=== PATIENT | male | born 1960 | race Caucasian/White ===

== ENCOUNTER 2017-03-09 18:57 | Outpatient (CLI) | payer MEDICAID | END 2017-03-09 18:58 | disposition critical access hospital (66) | DX: S01.01XA Laceration without foreign body of scalp, initial encounter (principal); V17.4XXA Pedal cycle driver injured in collision with fixed or stationary object in traffic accident, initial encounter; Y93.55 Activity, bike riding; Y92.414 Local residential or business street as the place of occurrence of the external cause | CPT/HCPCS: A0425; A0429 ==

== ENCOUNTER 2017-03-09 19:14 | Emergency (ER) | payer MEDICAID ==
[2017-03-09] MEDS ORDERED: IOPAMIDOL-300 100 ML VIAL IVP ONE (20:10)
== END 2017-03-09 21:50 | disposition home or self-care (01) ==
DX: S01.01XA Laceration without foreign body of scalp, initial encounter (principal); V17.4XXA Pedal cycle driver injured in collision with fixed or stationary object in traffic accident, initial encounter; Y93.55 Activity, bike riding; Y92.488 Other paved roadways as the place of occurrence of the external cause; K86.3 Pseudocyst of pancreas; F17.200 Nicotine dependence, unspecified, uncomplicated
CPT/HCPCS: 12002; 36415; 70450; 71260; 72125; 74177; 80053; 80320; 83690; 85025; 99283; 99284; Q9967

== ENCOUNTER 2017-03-26 13:01 | Emergency (ER) | payer MEDICAID | END 2017-03-26 13:45 | disposition home or self-care (01) | DX: S01.01XD Laceration without foreign body of scalp, subsequent encounter (principal); X58.XXXD Exposure to other specified factors, subsequent encounter; F17.200 Nicotine dependence, unspecified, uncomplicated ==

== ENCOUNTER 2017-06-19 11:39 | Emergency (ER) | payer MEDICAID ==
[2017-06-19 11:50] VITALS: BP 154/101
[2017-06-19] MEDS ORDERED: IBUPROFEN 600 MG TABLET PO STA (12:18)
[2017-06-19] MEDS ORDERED: CYCLOBENZAPRINE 10 MG TABLET PO STA (12:18)
--- NOTE | 2017-06-19 12:21 | ED Physician Documentation ---
PD HPI BACK PAIN - Stated complaint Stated Complaint: BACK PX - Chief complaint Chief Complaint: Back Pain - History obtained from History obtained from: Patient - History of Present Illness Timing - onset: How many days ago (5) Timing - duration: Days (5) Timing - details: Gradual onset Pain level max: 8 Pain level now: 4 Location: Lower, Left Quality: Pain, Spasm, Similar to prior episodes Associated symptoms: No: Fever, Weakness, Numbness, Incontinent of urine, Unable to urinate, Hematuria, Incontinent of stool Improves with: Rest Worsened by: Movement, Lifting, Twisting Contributing factors: Other (thinks he might have fallen, but unsure) Similar symptoms before: Diagnosis (back pain) Recently seen: Not recently seen - Additional information Additional information: states marijuana is not helping. hasn't tried anything else. Review of Systems Ten Systems: 10 systems reviewed and negative Constitutional: denies: Fever, Chills Nose: denies: Rhinorrhea / runny nose, Congestion Throat: denies: Sore throat Cardiac: denies: Chest pain / pressure Respiratory: denies: Cough GI: denies: Abdominal Pain, Nausea, Vomiting, Diarrhea : denies: Incontinent Skin: denies: Rash Musculoskeletal: denies: Neck pain Neurologic: denies: Focal weakness, Numbness, Altered mental status, Headache PD PAST MEDICAL HISTORY - Past Medical History Cardiovascular: None Respiratory: None Neuro: None Endocrine/Autoimmune: None GI: Pancreatitis : None HEENT: None Psych: None Musculoskeletal: None Derm: None - Past Surgical History Past Surgical History: Yes General: Appendectomy, Other Ortho: Other HEENT: Tonsil/Adenoidectomy - Present Medications Home Medications: Ambulatory Orders Medication Instructions Recorded Confirmed Cyclobenzaprine [Flexeril] 10 mg PO TID PRN #20 tablet 06/19/17 Ibuprofen [Motrin] 800 mg PO Q8H PRN #30 tablet 06/19/17 - Allergies Allergies/Adverse Reactions: Allergies Allergy/AdvReac Type Severity Reaction Status Date / Time No Known Drug Allergies Allergy Verified 03/26/17 13:09 - Social History Does the pt smoke?: Yes Smoking Status: Current every day smoker Does the pt drink ETOH?: Yes ETOH Use: Beer Does the pt have substance abuse?: Yes Substance Use and Type: Marijuana - Immunizations Immunizations are current?: No Immunizations: TDAP >10years/unknown - POLST Patient has POLST: No POLST Status: Full Code PD ED PE NORMAL - Vitals Vital signs reviewed: Yes - General General: Alert and oriented X 3, No acute distress - HEENT HEENT: Moist mucous membranes - Neck Neck: Supple, no meningeal sign - Cardiac Cardiac: RRR - Respiratory Respiratory: No respiratory distress, Clear bilaterally - Abdomen Abdomen: Soft, Non tender, Non distended, No organomegaly, Other (no masses) - Back Back: No spinal TTP, Other (TTP L SI joint with mild muscle spasm. no midline tenderness to palpation or percussion.) - Derm Derm: Warm and dry - Extremities Extremities: Other (normal bilateral lower extremity patellar and ankle jerk reflexes. Normal great toe extension bilaterally) - Neuro Neuro: Alert and oriented X 3, No motor deficit, No sensory deficit - Psych Psych: Normal mood, Normal affect Results - Vitals Vitals: Vital Signs - 24 hr 06/19/17 11:45 Temperature 35.3 C L Heart Rate 98 Respiratory 20 Rate Blood Pressure 154/101 H O2 Saturation 99 Oxygen O2 Source Room air PD MEDICAL DECISION MAKING - ED course Complexity details: re-evaluated patient, considered differential (no cauda equina, no spinal epidural abscess, no fracture, no aortic dissection or evidence of aneursym rupture), d/w patient ED course: Patient is a 56-year-old gentleman who presents to the emergency department with left low back pain and paraspinal spasm. No midline tenderness. Does not use IV drugs. No evidence of epidural abscess, cauda equina or fracture. Ambulating quite well. Pain improved with Motrin and Flexeril. Will prescribe medications for home and follow-up with his doctor. Patient counseled regarding signs and symptoms for which I believe and urgent re-evaluation would be necessary. Patient with good understanding of and agreement to plan and is comfortable going home at this time This document was made in part using voice recognition software. While efforts are made to proofread this document, sound alike and grammatical errors may occur. Departure - Departure Disposition: 01 Home, Self Care Clinical Impression: Low back strain Qualifiers: Encounter type: initial encounter Qualified Code(s): S39.012A - Strain of muscle, fascia and tendon of lower back, initial encounter Condition: Good Instructions: ED Sprain Strain Lumbar Follow-Up: your,doctor in 1 week if not better [Other] Prescriptions: Cyclobenzaprine [Flexeril] 10 mg PO TID PRN #20 tablet PRN Reason: Spasms Ibuprofen [Motrin] 800 mg PO Q8H PRN #30 tablet PRN Reason: PAIN &/OR FEVER Comments: Return if you worsen. This should improve over the next few days. Do not drive or operate heavy machinery while taking the Flexeril. Your blood pressure was elevated today on check in to the emergency department. This does not mean that you have hypertension, it is a common phenomenon to check into the emergency department and have elevated blood pressure. I recommend that you see your primary care physician within the week to have it rechecked when you're feeling better. Discharge Date/Time: 06/19/17 13:00
[2017-06-19] MEDS ORDERED: IBUPROFEN 600 MG TABLET PO ONE (12:24)
[2017-06-19] MEDS ORDERED: CYCLOBENZAPRINE 10 MG TABLET PO ONE (12:24)
== END 2017-06-19 13:00 | disposition home or self-care (01) ==
LOC: ED 11:39
DX: S39.012A Strain of muscle, fascia and tendon of lower back, initial encounter (principal); X58.XXXA Exposure to other specified factors, initial encounter; R03.0 Elevated blood-pressure reading, without diagnosis of hypertension; F17.200 Nicotine dependence, unspecified, uncomplicated
CPT/HCPCS: 99283; A9270

== ENCOUNTER 2017-10-19 12:00 | Emergency (ER) | payer MEDICAID ==
[2017-10-19 13:30] VITALS: BP 152/99
[2017-10-19] MEDS ORDERED: SULFAMETH/TRIMETH DS 800/160 MG TABLET PO STA (13:37)
[2017-10-19] MEDS ORDERED: HYDROmorphone 1 MG/ML SYRINGE IM STA (13:37)
[2017-10-19] MEDS ORDERED: cephALEXin 250 MG CAPSULE PO STA (13:40)
--- NOTE | 2017-10-19 13:40 | ED Physician Documentation ---
History of Present Illness - Stated complaint Stated Complaint: SORE ON BUTTOCKS - Chief complaint Chief Complaint: General - History obtained from History obtained from: Patient - History of Present Illness Timing: Other (This is a 57-year-old very pleasant homeless alcoholic who has been sleeping on his right hip. He has a sore there that is painful. No fevers.) Review of Systems Constitutional: denies: Fever, Chills GI: reports: Abdominal Pain (chronic). denies: Diarrhea, Hematemesis, Bloody / black stool : reports: Reviewed and negative PD PAST MEDICAL HISTORY - Past Medical History Cardiovascular: None Respiratory: None Neuro: None Endocrine/Autoimmune: None GI: Pancreatitis : None HEENT: None Psych: None Musculoskeletal: None Derm: None - Past Surgical History Past Surgical History: Yes General: Appendectomy, Other Ortho: Other HEENT: Tonsil/Adenoidectomy - Present Medications Home Medications: Ambulatory Orders Medication Instructions Recorded Confirmed Cyclobenzaprine [Flexeril] 10 mg PO TID PRN #20 tablet 06/19/17 Ibuprofen [Motrin] 800 mg PO Q8H PRN #30 tablet 06/19/17 Cephalexin [Keflex] 500 mg PO QID #40 capsule 10/19/17 HYDROcod/ACETAM 5/325 [[place] 5/325] 1 - 2 ea PO Q6H PRN #10 tablet 10/19/17 Sulfamethoxazole/Trimethoprim 1 each PO BID 10 Days tablet 10/19/17 [Sulfamethoxazole-Tmp Ds Tablet] - Allergies Allergies/Adverse Reactions: Allergies Allergy/AdvReac Type Severity Reaction Status Date / Time No Known Drug Allergies Allergy Verified 03/26/17 13:09 - Social History Does the pt smoke?: Yes Smoking Status: Current every day smoker Does the pt drink ETOH?: Yes Does the pt have substance abuse?: Yes - Immunizations Immunizations are current?: No Immunizations: TDAP >10years/unknown - POLST Patient has POLST: No POLST Status: Full Code PD ED PE NORMAL - Vitals Vital signs reviewed: Yes - General General: Alert and oriented X 3, No acute distress - Abdomen Abdomen: Soft, Non tender - Extremities Extremities: Other (There is a focal area of cellulitis over the trochanter of the right hip measuring about 3 cm in diameter with a slightly abraded surface. Bedside ultrasound does not demonstrate any fluid collection to drain at this juncture.) - Neuro Neuro: Alert and oriented X 3, Normal speech Results - Vitals Vitals: Vital Signs - 24 hr 10/19/17 10/19/17 12:14 13:28 Temperature 36.5 C Heart Rate 104 H 96 Respiratory 18 16 Rate Blood Pressure 148/105 H 152/99 H O2 Saturation 97 97 Oxygen O2 Source Room air PD MEDICAL DECISION MAKING - ED course ED course: 57-year-old gentleman with focal area of cellulitis over the hip, pain is not out of proportion to exam. No Evidence of abscess at this juncture, although advised that this may develop, he does not need incision and drainage now though. He is started on antibiotics and advised to return for wound check in 24-48 hours. I suspect the cause of the wound is that he lays on that side when he is drunk. He was advised to cut back on his drinking so that he would move around more in his sleep and not put undue pressure on the already sore spot. Departure - Departure Disposition: 01 Home, Self Care Clinical Impression: Cellulitis of hip, right Condition: Good Record reviewed to determine appropriate education?: Yes Instructions: Cellulitis Dc Prescriptions: Cephalexin [Keflex] 500 mg PO QID #40 capsule HYDROcod/ACETAM 5/325 [[place] 5/325] 1 - 2 ea PO Q6H PRN #10 tablet PRN Reason: Pain Sulfamethoxazole/Trimethoprim [Sulfamethoxazole-Tmp Ds Tablet] 1 each PO BID 10 Days tablet Comments: Return in 48 hours For wound check, sooner if worsening or for fevers. Your blood pressure was elevated today on check into the emergency department. This does not mean that you have hypertension, it is a common phenomenon to come to the emergency department and have elevated blood pressure. I recommend that you see your primary care physician within the week to have it rechecked when you are feeling better. Discharge Date/Time: 10/19/17 13:55
[2017-10-19] MEDS ORDERED: SULFAMETH/TRIMETH DS 800/160 MG TABLET PO ONE (13:46)
[2017-10-19] MEDS ORDERED: HYDROmorphone 1 MG/ML SYRINGE ONE (13:46)
[2017-10-19] MEDS ORDERED: cephALEXin 250 MG CAPSULE PO ONE (13:48)
== END 2017-10-19 13:55 | disposition home or self-care (01) ==
LOC: ED 12:00
DX: L03.115 Cellulitis of right lower limb (principal); R03.0 Elevated blood-pressure reading, without diagnosis of hypertension; Z59.0 Homelessness; F17.200 Nicotine dependence, unspecified, uncomplicated
CPT/HCPCS: 96372; 99283; A9270; J1170

== ENCOUNTER 2017-11-19 00:35 | Outpatient (CLI) | payer MEDICAID | END 2017-11-19 00:36 | disposition home or self-care (01) | LOC: EMS 00:35 | PROVIDERS: ATTEND Surgery | DX: I46.9 Cardiac arrest, cause unspecified (principal) | CPT/HCPCS: A0425; A0433 ==

== ENCOUNTER 2017-11-19 00:48 | Emergency (ER) | payer MEDICAID ==
[2017-11-19] MEDS ORDERED: SODIUM CHLORIDE 0.9% 1,000 ML IV ONE ×2 (00:58→03:13)
--- NOTE | 2017-11-19 01:03 | ED Physician Documentation ---
History of Present Illness - Stated complaint Stated Complaint: CPR - Chief complaint Chief Complaint: Cardiac - History obtained from History obtained from: EMS (EMS reports that the pt was at a longterm this evening and went into the bathroom followed by the longterm staff and found the pt on the toilet unresponsive and reported to have no pulses and blue. staff started CPR. fire department arrived and continued CPR. EMS arrived and continued CPR. initial rhythm was asystolic. Pt was given 2 rounds of EPI and narcan. EMS reports pt was PEA at one point. ROSC was obtained prior to arrival to the ER. pt intubated w/o sedation prior to arrival to the ER. No other reported history.) Review of Systems Unable to obtain: Unresponsive, Intubated PD PAST MEDICAL HISTORY - Past Medical History Cardiovascular: None Respiratory: None Neuro: None Endocrine/Autoimmune: None GI: Pancreatitis : None HEENT: None Psych: None Musculoskeletal: None Derm: None - Past Surgical History Past Surgical History: Yes General: Appendectomy, Other Ortho: Other HEENT: Tonsil/Adenoidectomy - Present Medications Home Medications: Ambulatory Orders Medication Instructions Recorded Confirmed Cyclobenzaprine [Flexeril] 10 mg PO TID PRN #20 tablet 06/19/17 Ibuprofen [Motrin] 800 mg PO Q8H PRN #30 tablet 06/19/17 Cephalexin [Keflex] 500 mg PO QID #40 capsule 10/19/17 HYDROcod/ACETAM 5/325 [[place] 5/325] 1 - 2 ea PO Q6H PRN #10 tablet 10/19/17 Sulfamethoxazole/Trimethoprim 1 each PO BID 10 Days tablet 10/19/17 [Sulfamethoxazole-Tmp Ds Tablet] - Allergies Allergies/Adverse Reactions: Allergies Allergy/AdvReac Type Severity Reaction Status Date / Time No Known Drug Allergies Allergy Verified 11/19/17 00:56 - Social History Does the pt smoke?: Yes Smoking Status: Current every day smoker Does the pt drink ETOH?: Yes Does the pt have substance abuse?: Yes - Immunizations Immunizations are current?: No Immunizations: TDAP >10years/unknown - POLST Patient has POLST: No POLST Status: Full Code PD ED PE NORMAL - Vitals Vital signs reviewed: Yes - General General: No: No acute distress (severe distress) - HEENT HEENT: Atraumatic, Moist mucous membranes. No: PERRL (pupils 3mm and unresponsive bilateral ) - Neck Neck: Other (no deformities) - Cardiac Cardiac: No murmur. No: RRR (tachycardic but regular) - Respiratory Respiratory: Other (intubated o2 sats 100% on 100% o2) - Abdomen Abdomen: No: Non distended (distended) - Male Male : Other (circumcised) - Rectal Rectal: Other (no rectal tone. pt had fecal incontinence, no gross blood) - Back Back: Other (no deformities no step offs) - Extremities Extremities: Other (no swelling, no obvisous deformities, no signs of trauma ) - Neuro Eye Opening: None Motor: None Verbal: None GCS Score: 3 - Psych Psych: Other (unresponsive) PD ED PE EXPANDED - Neuro Neuro: Unresponsive Results - Vitals Vitals: Vital Signs - 24 hr 11/19/17 11/19/17 11/19/17 01:05 01:21 02:18 Temperature 35.2 C L Heart Rate 112 H 112 H 113 H Respiratory 18 18 25 H Rate Blood Pressure 194/118 H 194/118 H 137/103 H O2 Saturation 100 99 100 11/19/17 11/19/17 11/19/17 02:46 03:23 03:40 Temperature 33.1 C L 33.2 C L Heart Rate 105 H 106 H 105 H Respiratory 24 25 H 25 H Rate Blood Pressure 127/97 H 198/99 H 131/102 H O2 Saturation 100 100 98 Oxygen O2 Source Mechanical ventilator Oxygen Flow Rate 15 - EKG (time done) 0053 Rate: Rate (enter#) Rhythm: Sinus tachycardia [place]: Normal Intervals: RBBB Ischemia: ST depression (V2), T wave inversion (V1) - Labs Labs: Laboratory Tests 11/19/17 11/19/17 11/19/17 01:22 01:22 01:22 WBC 9.7 RBC 3.41 L Hgb 12.1 L Hct 36.4 L MCV 106.8 H MCH 35.6 H MCHC 33.3 RDW 14.2 Plt Count 210 MPV 7.4 Neut # 5.8 Lymph # 3.6 H Toole # 0.2 Eos # 0.1 Baso # 0.1 Absolute Nucleated RBC 0.01 Nucleated RBC % 0.1 PT 13.8 H INR 1.2 APTT 40.6 H Sodium 132 L Potassium 2.9 L Chloride 100 L Carbon Dioxide 11 L* Anion Gap 21.0 H BUN < 5 L Creatinine 0.7 Estimated GFR (MDRD) 115 Glucose 244 H Lactic Acid Calcium 7.3 L Total Bilirubin 0.5 AST 171 H ALT 47 Alkaline Phosphatase 172 H Troponin I Total Protein 6.2 L Albumin 2.8 L Globulin 3.4 Albumin/Globulin Ratio 0.8 L Lipase 154 H Salicylates Urine Opiates Screen Ur Oxycodone Screen Urine Methadone Screen Ur Propoxyphene Screen Acetaminophen Ur Barbiturates Screen Ur Tricyclics Screen Ur Phencyclidine Scrn Ur Amphetamine Screen U Methamphetamines Scrn U Benzodiazepines Scrn Urine Cocaine Screen U Cannabinoids Screen Ethyl Alcohol Serum Ketones 11/19/17 11/19/17 11/19/17 01:22 01:22 02:43 WBC RBC Hgb Hct MCV MCH MCHC RDW Plt Count MPV Neut # Lymph # [place]ole # Eos # Baso # Absolute Nucleated RBC Nucleated RBC % PT INR APTT Sodium Potassium Chloride Carbon Dioxide Anion Gap BUN Creatinine Estimated GFR (MDRD) Glucose Lactic Acid Calcium Total Bilirubin AST ALT Alkaline Phosphatase Troponin I < 0.04 Total Protein Albumin Globulin Albumin/Globulin Ratio Lipase Salicylates < 6.0 Urine Opiates Screen NEGATIVE Ur Oxycodone Screen NEGATIVE Urine Methadone Screen NEGATIVE Ur Propoxyphene Screen NEGATIVE Acetaminophen < 10 L Ur Barbiturates Screen NEGATIVE Ur Tricyclics Screen NEGATIVE Ur Phencyclidine Scrn NEGATIVE Ur Amphetamine Screen NEGATIVE U Methamphetamines Scrn NEGATIVE U Benzodiazepines Scrn NEGATIVE Urine Cocaine Screen NEGATIVE U Cannabinoids Screen POSITIVE H Ethyl Alcohol 160.1 Serum Ketones NEGATIVE 11/19/17 02:46 WBC RBC Hgb Hct MCV MCH MCHC RDW Plt Count MPV Neut # Lymph # [place] # Eos # Baso # Absolute Nucleated RBC Nucleated RBC % PT INR APTT Sodium Potassium Chloride Carbon Dioxide Anion Gap BUN Creatinine Estimated GFR (MDRD) Glucose Lactic Acid 7.6 H* Calcium Total Bilirubin AST ALT Alkaline Phosphatase Troponin I Total Protein Albumin Globulin Albumin/Globulin Ratio Lipase Salicylates Urine Opiates Screen Ur Oxycodone Screen Urine Methadone Screen Ur Propoxyphene Screen Acetaminophen Ur Barbiturates Screen Ur Tricyclics Screen Ur Phencyclidine Scrn Ur Amphetamine Screen U Methamphetamines Scrn U Benzodiazepines Scrn Urine Cocaine Screen U Cannabinoids Screen Ethyl Alcohol Serum Ketones - Rads (name of study) CXR Radiology: Final report received (Emphysema, bronchial wall thickening. ETT above the caesar), EMP read contemporaneously Head CT Radiology: Final report received (no hemorrhage or mass effect. bo-white differentiation is not distince, suspect an element of early edema), EMP read contemporaneously PD MEDICAL DECISION MAKING - ED course Complexity details: reviewed old records, reviewed results, re-evaluated patient , considered differential ED course: pt with ROSC prior to arrival to the ER. Strong pulse and good BP and o2 sats. Intubated prior to arrival. initial rhythm asystole. Pt with 16G iV in right AC and 18G in left AC. received 1.5L of fluid prior to arrival for hypotension. Pt w/o reactive pupils and no rectal tone. Intubated W/O medications by EMS. Pt remained unresponsive in the ER however maintaining HR and BP. no bleed on the head CT but concern for early edema. no signs of herniation. Discussed case with Dr Martinez at [facility] who accepts the patient. cooling measures started in the ER. ECG and trop point against a cardiac event. other tox labs and DKA labs ordered after discussion with Dr Martinez. Will transport by air. secondary to his condition. Serum ketones neg. ABG showing pH of 7.0 with Co2 of 52 and bicarb of 12. Bicarb given. lactate elevated. pt being administered fluids. Pt has elevated ETOH level. Pt unable to go by air secondary to the weather. [facility] transport being arranged. 0320: pt continues to have no change in neuro status. - Critical Care Time(min): 60 Time Includes: Direct patient care, Review records, Reassess patient, Document care, Coordinate care, Medical consult Data interpretation: Labs, Pulse ox, CXR, Cardiac output Procedures included in critical care time: Ventilator mgmt Departure - Departure Disposition: 02 Transfer Acute Care Hosp Clinical Impression: Cardiac arrest, Hyperglycemia, Acidosis Elevated ETOH level Qualifiers: Blood alcohol level: 120-199 mg/100 ml Qualified Code(s): Y90.6 - Blood alcohol level of 120-199 mg/100 ml Condition: Serious
--- NOTE | 2017-11-19 01:23 | XRAY Preliminary Report ---
Exam: XR CHEST 1 VIEW IMPRESSION: 1. Emphysema. Bronchial wall thickening which could be due to bronchitis or reactive airways disease. 2. ETT 4.2 cm above the caesar. [facility] SITE ID: [id number]
--- NOTE | 2017-11-19 01:24 | XRAY Report ---
EXAM: CHEST RADIOGRAPHY EXAM DATE: 11/19/2017 01:13 AM. CLINICAL HISTORY: Post intubation . COMPARISON: 07/28/2014. TECHNIQUE: 1 view. FINDINGS: Lungs/Pleura: Large lung volumes consistent with emphysema. Bronchial wall thickening. No alveolar co nsolidation or pleural effusion seen. No pneumothorax. Mediastinum: Within exam limitations, the cardiomediastinal contour is normal. Other: Endotracheal tube is in place with the tip 4.2 cm above the caesar. Old left rib fractures. IMPRESSION: 1. Emphysema. Bronchial wall thickening which could be due to bronchitis or reactive airways disease. 2. ETT 4.2 cm above the caesar. [facility] Referring Provider Line: [phone] SITE ID: [id number]
[2017-11-19 01:31] LABS: BASOPHILS # (AUTO) 0.1 10^3/uL (0.0-0.1); BASOPHILS % (AUTO) 0.6 %; EOSINOPHILS # (AUTO) 0.1 10^3/uL (0.0-0.7); EOSINOPHILS % (AUTO) 0.5 %; HGB - HEMOGLOBIN 12.1 g/dL (14.0-18.0); LYMPHOCYTES # (AUTO) 3.6 10^3/uL (1.5-3.5); LYMPHOCYTES % (AUTO) 37.1 %; MEAN CORPUSCULAR HEMOGLOBIN 35.6 pg (27.0-31.0); MEAN CORPUSCULAR HGB CONC 33.3 g/dL (32.0-36.0); MEAN CORPUSCULAR VOLUME 106.8 fL (80.0-94.0); MEAN PLATELET VOLUME 7.4 fL (7.4-11.4); MONOCYTES # (AUTO) 0.2 10^3/uL (0.0-1.0); MONOCYTES % (AUTO) 2.3 %; NEUTROPHILS # (AUTO) 5.8 10^3/uL (1.5-6.6); NEUTROPHILS % (AUTO) 59.5 %; PLT - PLATELET COUNT 210 10^3/uL (130-450); RED BLOOD COUNT 3.41 10^6/uL (4.70-6.10); RED CELL DISTRIBUTION WIDTH 14.2 % (12.0-15.0); WHITE BLOOD COUNT 9.7 x10^3/uL (4.8-10.8)
[2017-11-19 01:33] LABS: INR 1.2 (0.8-1.2); PT - PROTHROMBIN TIME 13.8 secs (9.9-12.6)
[2017-11-19 02:06] LABS: ALBUMIN 2.8 g/dL (3.2-5.5); ALBUMIN/GLOBULIN RATIO 0.8 (1.0-2.2); ALKALINE PHOSPHATASE 172 IU/L (42-121); ALT ALANINE AMINOTRANSFERASE 47 IU/L (10-60); AST ASPARTATE AMINOTRANSFERASE 171 IU/L (10-42); BILIRUBIN,TOTAL 0.5 mg/dL (0.2-1.0); BUN - BLOOD UREA NITROGEN < 5 mg/dL (6-20); CALCIUM 7.3 mg/dL (8.5-10.3); CHLORIDE 100 mmol/L (101-111); CREATININE 0.7 mg/dL (0.6-1.2); GFR - MDRD 115 (>89); GLUCOSE 244 mg/dL (70-100); LIPASE 154 U/L (22-51); SODIUM 132 mmol/L (135-145); TOTAL PROTEIN 6.2 g/dL (6.7-8.2)
[2017-11-19 02:07] LABS: CARBON DIOXIDE - CO2 11 mmol/L (21-32)
--- NOTE | 2017-11-19 02:30 | CT Report ---
EXAM: CT HEAD EXAM DATE: 11/19/2017 02:00 AM. CLINICAL HISTORY: Cardiac arrest with ROSC. COMPARISON: None. TECHNIQUE: Multiaxial CT images were obtained from the foramen magnum to the vertex. Reformats: Coron al. IV contrast: None. In accordance with CT protocol optimization, one or more of the following dose reduction techniques w ere utilized for this exam: automated exposure control, adjustment of mA and/or KV based on patient s ize, or use of iterative reconstructive technique. FINDINGS: Parenchyma: No intraparenchymal hemorrhage. No evidence of mass, midline shift, or CT findings of inf arction. Brady-white differentiation is not distinct. Extraaxial Spaces: Normal for age. No subdural or epidural collections identified. Ventricles: Normal in size and position. Sinuses and Orbits: Imaged paranasal sinuses, orbits, and mastoids show no significant abnormality. Bones: No evidence of fracture or calvarial defect. Other: None. IMPRESSION: No hemorrhage or mass effect. Brady-white differentiation is not distinct, suspect an inaja ent of early edema. [facility] The above findings were discussed with Dr. Barber by Dr. Juan Gallagher at 02:28 hrs on 11/19/17. Referring Provider Line: [phone] SITE ID: [id number]
[2017-11-19 02:47] LABS: KETONES, SERUM (ACETEST) NEGATIVE (NEGATIVE)
[2017-11-19 02:52] LABS: MUDS CUTOFF CONCENTRATIONS CUTOFF CONC BELOW:
[2017-11-19 02:53] LABS: SALICYLATE < 6.0 mg/dL
[2017-11-19 02:55] LABS: ACETAMINOPHEN < 10 ug/mL (10-30)
[2017-11-19] MEDS ORDERED: SODIUM BICARBONATE ABBOJECT 50 MEQ/50 ML SYRINGE IVP STA (03:01)
[2017-11-19] MEDS ORDERED: SODIUM BICARBONATE ABBOJECT 50 MEQ/50 ML SYRINGE ONE (03:03)
[2017-11-19 03:05] LABS: AMPHETAMINE SCREEN,URINE NEGATIVE (NEGATIVE); BENZODIAZEPINES SCREEN, URINE NEGATIVE (NEGATIVE); COCAINE SCREEN URINE NEGATIVE (NEGATIVE); METHADONE SCREEN, URINE NEGATIVE (NEGATIVE); METHAMPHETAMINES SCREEN, URINE NEGATIVE (NEGATIVE); OPIATE SCREEN, URINE NEGATIVE (NEGATIVE); OXYCODONE SCREEN, URINE NEGATIVE (NEGATIVE); PROPOXYPHENE SCREEN, URINE NEGATIVE (NEGATIVE); TRICYCLIC ANTIDEPRESSANT,URINE NEGATIVE (NEGATIVE)
[2017-11-19 03:41] VITALS: BP 131/102
[2017-11-19 04:59] LABS: ABG HCO3 12.9 mmol/L (22.0-26.0); ABG PCO2 52 mmHg (34-45); ABG PO2 112 mmHg (80-100); ABG TCO2 14.5 MMOL/L (21.0-29.0)
[2017-11-19 05:00] LABS: ABG OXYGEN SATURATION 96 % (94-98); ABG PH 7.01 (7.35-7.45); ALLEN TEST POSITIVE
== END 2017-11-19 04:13 | disposition short-term general hospital (02) ==
LOC: EDUNIT# → ED 00:48
DX: I46.9 Cardiac arrest, cause unspecified (principal); R73.9 Hyperglycemia, unspecified; E87.2 Acidosis; I45.10 Unspecified right bundle-branch block; R00.0 Tachycardia, unspecified; F17.200 Nicotine dependence, unspecified, uncomplicated; Y90.6 Blood alcohol level of 120-199 mg/100 ml
CPT/HCPCS: 36415; 36600; 51702; 70450; 71010; 80053; 80306; 80307; 80320; 80329; 82009; 82803; 83605; 83690; 84484; 85025; 85610; 85730; 93005; 96361; 96374; 99285; 99291

== ENCOUNTER 2017-11-19 04:26 | Outpatient (CLI) | payer MEDICAID | END 2017-11-19 04:27 | disposition short-term general hospital (02) | LOC: EMS 04:26 | PROVIDERS: ATTEND Surgery | DX: I46.9 Cardiac arrest, cause unspecified (principal) | CPT/HCPCS: A0425; A0426 ==